=== PATIENT | male | born 1995 | race Caucasian/White ===

== ENCOUNTER 2017-01-17 12:07 | Emergency (ER) | payer OTHER ==
[~2017-01-17] VITALS: Ht 193 cm; Wt 98.9 kg
[2017-01-17] MEDS ORDERED: ASPIRIN 81 MG CHEW (CHILDREN'S ASA) PO STA (13:05)
[2017-01-17 13:10] LABS: BASOPHILS % (AUTO) 0 % (0-10); EOSINOPHILS % (AUTO) 1 % (0-10); LYMPHOCYTES # (AUTO) 1.3 X 10^3 (1.0-4.0); LYMPHOCYTES % (AUTO) 20 % (12-44); MEAN CORPUSCULAR HEMOGLOBIN 30 PG (25-34); MEAN CORPUSCULAR HGB CONC 34 G/DL (32-36); MEAN CORPUSCULAR VOLUME 87 FL (80-99); MEAN PLATELET VOLUME 10.9 FL (7.4-10.4); MONOCYTES # (AUTO) 0.8 X 10^3 (0.0-1.0); MONOCYTES % (AUTO) 12 % (0-12); NEUTROPHILS # (AUTO) 4.4 X 10^3 (1.8-7.8); NEUTROPHILS % (AUTO) 67 % (42-75); PLATELET COUNT 185 10^3/uL (130-400); RED BLOOD COUNT 5.12 10^6/uL (4.35-5.85); RED CELL DISTRIBUTION WIDTH 12.4 % (10.0-14.5); WHITE BLOOD COUNT 6.6 10^3/uL (4.3-11.0)
[2017-01-17 13:15] LABS: INR 1.2 (0.8-1.4)
[2017-01-17] MEDS ORDERED: LISD40CA3 PO (13:16)
[2017-01-17 13:23] LABS: ALANINE AMINOTRANSFERASE 25 U/L (0-55); ALBUMIN 4.8 GM/DL (3.2-4.5); ANION GAP 11 MMOL/L (5-14); ASPARTATE AMINO TRANSFERASE 19 U/L (5-34); BILIRUBIN,TOTAL 1.1 MG/DL (0.1-1.0); BLOOD UREA NITROGEN 13 MG/DL (7-18); BUN/CREATININE RATIO 9; CALCIUM 9.9 MG/DL (8.5-10.1); CARBON DIOXIDE 25 MMOL/L (21-32); CHLORIDE 102 MMOL/L (98-107); CREATININE SERUM 1.38 MG/DL (0.60-1.30); GFR ESTIMATED > 60; GLUCOSE 102 MG/DL (70-105); MAGNESIUM 2.2 MG/DL (1.8-2.4); POTASSIUM 4.3 MMOL/L (3.6-5.0); SODIUM 138 MMOL/L (135-145); TOTAL PROTEIN 7.4 GM/DL (6.4-8.2)
[2017-01-17 13:30] LABS: MYOGLOBIN SERUM 29.7 NG/ML (10.0-92.0)
[2017-01-17] MEDS ORDERED: NS IV 1000 ML 1,000 ML IV ONE (13:43)
--- NOTE | 2017-01-17 13:46 | Diagnostic Imaging Report ---
INDICATION: Vomiting, hypertension, chest pain x3 days.. TECHNIQUE: Single view chest 1:37 PM. CORRELATION STUDY: None FINDINGS: The heart size, mediastinal configuration and pulmonary vascularity are within normal limits. The lungs are clear with no consolidating infiltrate. There is no significant effusion or pneumothorax. IMPRESSION: 1. Negative portable chest. Dictated by: Dictated on workstation # [id number]
--- NOTE | 2017-01-17 13:52 | ED Chest Pain ---
General Chief Complaint: Chest Pain Stated Complaint: HIGH BP,HIGH HEART RATE,CHEST PAIN Nursing Triage Note: PT STATES HAS HAD CHEST PAIN SINCE THURSDAY, WAS SEEN IN ED IN [place], PT STATES C/P BACK TODAY RATES PAIN 5/10. STATES B/P HIGH, PULSE RATE HIGH AT TIMES. PT STATES TAKES VYVANSE, STATES HAS JUST STOPPED CREATINE SUPPLEMENT THIS WEEK. Nursing Sepsis Screen: No Definite Risk Source: patient Exam Limitations: no limitations History of Present Illness Time seen by provider: 13:29 Initial Comments Here with report of central chest pain and is sometimes left-sided and sometimes right-sided that is associated with fast heart rate and he believes that his blood pressure is also elevated. Patient was seen a few days ago at [facility] in [place], [place] for the same. Workup there did not reveal any significant findings. Patient does report nausea and vomiting over the last few days and this occurred at onset and has persisted. He was not sure if it was food poisoning or other problems but that has gotten somewhat better. He is been able to tolerate fluids but has not tried eating food of significance. 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 He did use creatinine supplements for a long time but quit that onset of this incident. He will avoid this in the future. Timing/Duration: 2-3 days Severity/Quality: moderate, severe Location: central Radiation: no radiation Activities at Onset: none Prior CP/Workup: non-cardiac ASA po SPINNERET CLEANER: No NTG SL SPINNERET CLEANER: No Associated Symptoms: No abdominal pain, No back pain, No diaphoresis, No edema , fatigue, No fever/chills, nausea/vomiting, No shortness of breath Allergies and Home Medications Allergies Coded Allergies: No Known Drug Allergies (Unverified , 01/17/17) Home Medications Lisdexamfetamine Dimesylate 40 Mg Capsule, 40 MG PO, (Reported) Review of Systems Constitutional: see HPI, No chills, No fever EENTM: No Symptoms Reported Respiratory: No Symptoms Reported Cardiovascular: See HPI, Chest Pain, Palpitations Gastrointestinal: See HPI, Nausea, Vomiting Genitourinary: No Symptoms Reported Musculoskeletal: no symptoms reported Skin: see HPI Psychiatric/Neurological: See HPI, Anxiety All Other Systems Reviewed Negative Unless Noted: Yes Past Eovpkrs-Wijwiu-Kubjjt Hx Patient Social History Alcohol Use: Occasionally Uses Recreational Drug Use: No Smoking Status: Never a Smoker Recent Foreign Travel: No Contact w/Someone Who Travel: No Recent Infectious Disease Expo: No Surgeries HX Surgeries: Yes (plantar wart) Respiratory Hx Respiratory Disorders: No Cardiovascular Hx Cardiac Disorders: No Neurological Hx Neurological Disorders: No Gastrointestinal Hx Gastrointestinal Disorders: No Musculoskeletal Hx Musculoskeletal Disorders: No Reviewed Nursing Assessment Reviewed/Agree w Nursing PMH: Yes Family Medical History Significant Family History: No Pertinent Family Hx Physical Exam Vital Signs Vital Sign - Last 12Hours 01/17/17 01/17/17 12:07 12:25 Temp 97.5 Pulse 96 Resp 13 B/P (MAP) 142/73 Pulse Ox 99 Capillary Refill : Less Than 3 Seconds General Appearance: No Apparent Distress, WD/WN HEENT: PERRL/EOMI, Pharynx Normal Neck: Non Tender, Supple Respiratory: Lungs Clear, Normal Breath Sounds Cardiovascular: Regular Rate, Rhythm, No Murmur Gastrointestinal: Non Tender, Soft Extremity: Normal Inspection, Normal Range of Motion, Non Tender Neurologic/Psychiatric: Alert, Oriented x3 Skin: Normal Color, Warm/Dry Progress/Results/Core Measures Results/Orders Lab Results Laboratory Tests Test 01/17/17 12:41 Range/Units White Blood Count 6.6 4.3-11.0 10^3/uL Red Blood Count 5.12 4.35-5.85 10^6/uL Hemoglobin 15.1 13.3-17.7 G/DL Hematocrit 45 40-54 % Mean Corpuscular Volume 87 80-99 FL Mean Corpuscular Hemoglobin 30 25-34 PG Mean Corpuscular Hemoglobin Concent 34 32-36 G/DL Red Cell Distribution Width 12.4 10.0-14.5 % Platelet Count 185 130-400 10^3/uL Mean Platelet Volume 10.9 H 7.4-10.4 FL Neutrophils (%) (Auto) 67 42-75 % Lymphocytes (%) (Auto) 20 12-44 % Monocytes (%) (Auto) 12 0-12 % Eosinophils (%) (Auto) 1 0-10 % Basophils (%) (Auto) 0 0-10 % Neutrophils # (Auto) 4.4 1.8-7.8 X 10^3 Lymphocytes # (Auto) 1.3 1.0-4.0 X 10^3 Monocytes # (Auto) 0.8 0.0-1.0 X 10^3 Eosinophils # (Auto) 0.0 0.0-0.3 10^3/uL Basophils # (Auto) 0.0 0.0-0.1 10^3/uL Prothrombin Time 15.0 H 12.2-14.7 SEC INR Comment 1.2 0.8-1.4 Activated Partial Thromboplast Time 30 24-35 SEC D-Dimer < 0.27 0.00-0.49 UG/ML Sodium Level 138 135-145 MMOL/L Potassium Level 4.3 3.6-5.0 MMOL/L Chloride Level 102 98-107 MMOL/L Carbon Dioxide Level 25 21-32 MMOL/L Anion Gap 11 5-14 MMOL/L Blood Urea Nitrogen 13 7-18 MG/DL Creatinine 1.38 H 0.60-1.30 MG/DL Estimat Glomerular Filtration Rate > 60 BUN/Creatinine Ratio 9 Glucose Level 102 70-105 MG/DL Calcium Level 9.9 8.5-10.1 MG/DL Magnesium Level 2.2 1.8-2.4 MG/DL Total Bilirubin 1.1 H 0.1-1.0 MG/DL Aspartate Amino Transf (AST/SGOT) 19 5-34 U/L Alanine Aminotransferase (ALT/SGPT) 25 0-55 U/L Alkaline Phosphatase 46 40-136 U/L Myoglobin 29.7 10.0-92.0 NG/ML Troponin I < 0.30 <0.30 NG/ML Total Protein 7.4 6.4-8.2 GM/DL Albumin 4.8 H 3.2-4.5 GM/DL My Orders Orders - MADELYN GUERIN MD Cbc With Automated Diff (01/17/17 12:59) Magnesium (01/17/17 12:59) Chest 1 View, Ap/Pa Only (01/17/17 12:59) Ekg Tracing (01/17/17 12:59) Cardiac Profile 1 (01/17/17 12:59) Comprehensive Metabolic Panel (01/17/17 12:59) Myoglobin Serum (01/17/17 12:59) Protime With Inr (01/17/17 12:59) Partial Thromboplastin Time (01/17/17 12:59) O2 (01/17/17 12:59) Monitor-Rhythm Ecg Trace Only (01/17/17 12:59) Lipid Panel (01/18/17 06:00) Saline Lock/Iv-Start (01/17/17 12:59) Fibrin Degradation Products (01/17/17 12:59) Aspirin Chewable Tablet (Baby Aspirin Ch (01/17/17 13:05) Saline Lock/Iv-Start (01/17/17 13:43) Ns Iv 1000 Ml (Sodium Chloride 0.9%) (01/17/17 13:43) Medications Given in ED Current Medications Medications Dose Ordered Sig/Awilda Route Start Time Stop Time Status Last Admin Dose Admin Sodium Chloride 1,000 ml @ 0 mls/hr Q0M ONCE IV 01/17/17 13:43 01/17/17 13:46 DC 01/17/17 14:13 0 MLS/HR Vital Signs/I&O Vital Sign - Last 12Hours 01/17/17 01/17/17 01/17/17 12:07 12:10 12:25 Temp 97.5 Pulse 96 126 88 Resp 13 B/P (MAP) 142/73 Pulse Ox 99 98 100 Blood Pressure Mean: 96 Progress Note : Progress Note Seen and evaluated. IV, labs, EKG and chest x-ray ordered. ASA 324 mg by mouth ordered. Normal saline 1 L bolus ordered. Monitor patient. Somewhat improved after fluids. No acute findings. Discharged home with return precautions. Patient did have discussion with Dr. Marx who happened to be in the ER. She will follow him at the [employer] clinic. Patient verbalize understanding instructions and agreement with plan. ECG Initial ECG Impression Date: Jan 17, 2017 Initial ECG Impression Time: 12:35 Initial ECG Rate: 85 Initial ECG Rhythm: Normal Sinus Comment Sinus rhythm with incomplete right bundle branch block. Normal axis. No evidence of ST elevation [place]. No previous available for comparison. Interpreted by me. Diagnostic Imaging Diagonstic Imaging: Xray Plain Films/CT/US/NM/MRI: chest Comments NAME: MAGAN GILLESPIE [facility] MED REC#: [id number] PT STATUS: REG ER : 1995 PHYSICIAN: MADELYN GUERIN MD ADMIT DATE: 01/17/17/ER Signed Date of Exam: 01/17/17 CHEST 1 VIEW, AP/PA ONLY INDICATION: Vomiting, hypertension, chest pain x3 days.. TECHNIQUE: Single view chest 1:37 PM. CORRELATION STUDY: None FINDINGS: The heart size, mediastinal configuration and pulmonary vascularity are within normal limits. The lungs are clear with no consolidating infiltrate. There is no significant effusion or pneumothorax. IMPRESSION: 1. Negative portable chest. Dictated by: Dictated on workstation # [id number] Dict: 01/17/17 1343 Trans: 01/17/17 1343 Interpreted by: BAR GUPTA DO Electronically signed by: BAR GUPTA DO 01/17/17 1343 Departure Impression Impression: Primary Impression: Chest pain Qualified Codes: R07.9 - Chest pain, unspecified Additional Impressions: Vomiting Qualified Codes: R11.2 - Nausea with vomiting, unspecified Dehydration Disposition: 01 HOME, SELF-CARE Condition: Improved Departure-Patient Inst. Decision time for Depature: 13:56 Referrals: NO,LOCAL PHYSICIAN (PCP/Family) Primary Care Physician Patient Instructions: Chest Pain (DC) Add. Discharge Instructions: All discharge instructions reviewed with patient and/or family. Voiced understanding. Follow-up with the [facility] this week for recheck and further evaluation. Return for worse pain, fever, vomiting, weakness, breathing problems or other concerns as needed. Take other medications as directed. Scripts Valacyclovir HCl (Valtrex) 500 Mg Tablet 500 MG PO UD, #35 TAB Take one tablet twice daily for 5 days in then one tablet daily thereafter Prov: MADELYN GUERIN MD 01/17/17 MADELYN GUERIN MD Jan 17, 2017 13:52
[2017-01-17] MEDS ORDERED: VALA500T4 PO (16:11)
[2017-01-17 17:00] VITALS: BP 116/67
== END 2017-01-17 17:00 | disposition home or self-care (01) ==
LOC: EDUNIT# 12:07 → ER 12:11
DX: R07.89 Other chest pain (principal); R11.2 Nausea with vomiting, unspecified; E86.0 Dehydration
CPT/HCPCS: 36415; 71010; 80053; 83735; 83874; 84484; 85025; 85379; 85610; 85730; 93005; 93041; 96360